=== PATIENT | male | born 1950 | race Caucasian/White ===

== ENCOUNTER 2023-06-23 12:50 | Emergency (ER) | payer MEDICARE, OTHER ==
[~2023-06-23] VITALS: Ht 172 cm; Wt 81.0 kg
--- NOTE | 2023-06-23 12:58 | ED General ---
General Stated Complaint: SYNCOPAL EPISODE; SWEATING; LWR ABD PAIN History of Present Illness Date Seen by Provider: Jun 23, 2023 Time Seen by Provider: 12:57 Initial Comments 73 yr M with PMH of CAD with stents/ HTN/ non-smoker, is here with c/o near syncope when he got up to use the bathroom. Pt was at a diner, as he was passing through [place] to go home to [place] where he lives.Pt has been travelling the past week from [place] [facility] [place] [facility], and has not been drinking much water. Denies fever, cough, chest pain, palpitations, abdominal pain, vomiting, dysuria, diarrhea, SOB. Allergies and Home Medications Allergies Coded Allergies: No Known Allergies (Verified Allergy, Unknown, 06/23/23) Patient Home Medication List Home Medication List Reviewed: Yes Review of Systems Review of Systems Constitutional: see HPI, dizziness EENTM: no symptoms reported Respiratory: no symptoms reported Cardiovascular: no symptoms reported Gastrointestinal: no symptoms reported Genitourinary: no symptoms reported Musculoskeletal: no symptoms reported Skin: no symptoms reported Psychiatric/Neurological: No Symptoms Reported Hematologic/Lymphatic: No Symptoms Reported Immunological/Allergic: no symptoms reported Physical Exam Vital Signs Vital Signs - First Documented 06/23/23 13:10 Temp 36.6 Pulse 62 Resp 16 B/P (MAP) 80/54 (63) Pulse Ox 98 O2 Delivery Room Air Capillary Refill : Height, Weight, BMI Height: '" Weight: lbs. oz. 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 Skin: Normal Color Progress/Results/Core Measures Suspected Sepsis SIRS Temperature: Pulse: Respiratory Rate: Laboratory Tests 06/23/23 12:57: White Blood Count 11.7H Blood Pressure / Mean: Laboratory Tests 06/23/23 12:57: Creatinine 0.96, Platelet Count 329, Total Bilirubin 0.6 Results/Orders Lab Results Laboratory Tests Test 06/23/23 12:57 Range/Units White Blood Count 11.7 H 4.3-11.0 10^3/uL Red Blood Count 5.06 4.30-5.52 10^6/uL Hemoglobin 15.2 13.3-17.7 g/dL Hematocrit 45 40-54 % Mean Corpuscular Volume 89 80-99 fL Mean Corpuscular Hemoglobin 30 25-34 pg Mean Corpuscular Hemoglobin Concent 34 32-36 g/dL Red Cell Distribution Width 12.9 10.0-14.5 % Platelet Count 329 130-400 10^3/uL Mean Platelet Volume 10.1 9.0-12.2 fL Immature Granulocyte % (Auto) 0 % Neutrophils (%) (Auto) 52 42-75 % Lymphocytes (%) (Auto) 40 12-44 % Monocytes (%) (Auto) 5 0-12 % Eosinophils (%) (Auto) 2 0-10 % Basophils (%) (Auto) 1 0-10 % Neutrophils # (Auto) 6.1 1.8-7.8 X 10^3 Lymphocytes # (Auto) 4.7 H 1.0-4.0 X 10^3 Monocytes # (Auto) 0.6 0.0-1.0 X 10^3 Eosinophils # (Auto) 0.2 0.0-0.3 10^3/uL Basophils # (Auto) 0.1 0.0-0.1 10^3/uL Immature Granulocyte # (Auto) 0.0 0.0-0.1 10^3/uL Sodium Level 139 135-145 MMOL/L Potassium Level 3.8 3.6-5.0 MMOL/L Chloride Level 99 98-107 MMOL/L Carbon Dioxide Level 25 21-32 MMOL/L Anion Gap 15 H 5-14 MMOL/L Blood Urea Nitrogen 26 H 7-18 MG/DL Creatinine 0.96 0.60-1.30 MG/DL Estimat Glomerular Filtration Rate 83 BUN/Creatinine Ratio 27 Glucose Level 142 H 70-105 MG/DL Calcium Level 9.9 8.5-10.1 MG/DL Corrected Calcium 8.5-10.1 MG/DL Magnesium Level 2.3 1.6-2.4 MG/DL Total Bilirubin 0.6 0.1-1.0 MG/DL Aspartate Amino Transf (AST/SGOT) 20 5-34 U/L Alanine Aminotransferase (ALT/SGPT) 14 0-55 U/L Alkaline Phosphatase 64 40-136 U/L Troponin I < 0.30 <0.30 NG/ML Pro-B-Type Natriuretic Peptide 64.7 <125.0 PG/ML Total Protein 6.8 6.4-8.2 GM/DL Albumin 4.7 H 3.2-4.5 GM/DL My Orders Orders - CARL MAZARIEGOS MD Ua Culture If Indicated (06/23/23 12:58) Cbc With Automated Diff (06/23/23 13:14) Comprehensive Metabolic Panel (06/23/23 13:14) Magnesium (06/23/23 13:14) Probnp Fs (06/23/23 13:14) Troponin I Fs (06/23/23 13:14) Continuous Ekg Monitoring (06/23/23 13:16) Ekg Tracing (06/23/23 13:16) Ct Head Wo (06/23/23 13:16) Chest 1 View Ap/Pa Only (06/23/23 13:16) Ed Iv/Invasive Line Start (06/23/23 13:17) Ns Iv 1000 Ml (Ns Iv 1000 Ml) (06/23/23 13:30) Vital Signs/I&O 06/23/23 13:10 Temp 36.6 Pulse 62 Resp 16 B/P (MAP) 80/54 (63) Pulse Ox 98 O2 Delivery Room Air Capillary Refill : Progress Note : Progress Note 1. NEAR SYNCOPE DUE TO ORTHOSTATIC HYPOTENSION LIKELY CAUSED BY DEHYDRATION: - CT HEAD: No acute hemorrhage or other definite acute abnormality. There is significant atherosclerotic disease involving distal internal carotid and vertebral arteries with high density in the basilar artery. Consideration could be given to CTA study for further assessment and confirmation of patency of these vessels. - CXR: No acute findings - CBC/CMP: unremarkble - UA: Did not give sample - Troponin: undetected - BNP: neg - Orthostatics done by nurse: positive - NS IVF bolus STAT . Pt feels much better after the iv fluids. - Advised to follow up with PCP and flumer within 1 week. -The patient was seen in the ED, and treated appropriately to presentation at a specific point in time. Patient is informed that there is a possibility that disease and illness can evolve and change in acuity rapidly or slowly after patient is discharged from the ER. Precautionary advice given to the patient for immediate return to ER if symptoms worsen or do not resolve, and to seek emergency care sooner rather than later. Pt also advised on the importance of PCP follow up and compliance with management and follow up plan with PCP and/or specialist, as this is part of the management plan. Pt verbally expressed understanding. ECG Initial ECG Impression Date: Jun 23, 2023 Initial ECG Impression Time: 13:02 Initial ECG Rate: 56 Initial ECG Rhythm: S.Kam Initial ECG Intervals: Normal Initial ECG Impression: Nonspecific Changes Initial ECG Comparisson: No Previous ECG Available Diagnostic Imaging Diagonstic Imaging: Xray, CT Plain Films/CT/US/NM/MRI: chest, head Comments [facility] [place] NAME: KENDRA NI [facility] REC#: [id number] PT STATUS: REG ER : 1950 PHYSICIAN: CARL MAZARIEGOS MD ADMIT DATE: 06/23/23/ER FS Signed Date of Exam:06/23/23 CHEST 1 VIEW AP/PA ONLY EXAMINATION: Chest 1 view HISTORY: Dizziness. Near syncopal episode. COMPARISON: None available. FINDINGS: The lung volumes are normal. No focal consolidation is seen. No large pleural effusion or pneumothorax is seen. The cardiomediastinal silhouette is normal in size and contour. There is calcified aortic atherosclerotic plaque. No acute osseous abnormality is seen. IMPRESSION: 1. No acute pleuroparenchymal process. Dictated by: Dictated on workstation # [id number] Dict: 06/23/23 1350 Trans: 06/23/23 1352 CVB [id number] Interpreted by: JAKE IRELAND DO Electronically signed by: JAKE IRELAND DO 06/23/23 135 [facility] [place] NAME: KENDRA NI [facility] REC#: [id number] PT STATUS: REG ER : 1950 PHYSICIAN: CARL MAZARIEGOS MD ADMIT DATE: 06/23/23/ER FS Draft Date of Exam:06/23/23 CT HEAD WO PROCEDURE: CT head without contrast. TECHNIQUE: Multiple contiguous axial images were obtained through the brain without the use of intravenous contrast. Auto Exposure Controls were utilized during the CT exam to meet ALARA standards for radiation dose reduction. INDICATION: Dizziness. FINDINGS: Ventricles and sulci are within normal limits for size. There is no evidence of hemorrhage. There is no abnormal mass effect or shift of midline structures. There is extensive atherosclerotic calcification within distal internal carotid and vertebral arteries with significant increased density at the level of basilar artery. There is no geographic low density to indicate territorial infarct. Calvarium is intact. Paranasal sinuses are clear. There is debris which may represent cerumen within the external auditory canals. IMPRESSION: No acute hemorrhage or other definite acute abnormality. There is significant atherosclerotic disease involving distal internal carotid and vertebral arteries with high density in the basilar artery. Consideration could be given to CTA study for further assessment and confirmation of patency of these vessels. Dictated on workstation # [id number] Dict: 06/23/23 1335 Trans: 06/23/23 1340 [id number] [id number] Interpreted by: EASTON AGARWAL MD Electronically signed by: [facility] [place] NAME: KENDRA NI [facility] REC#: [id number] PT STATUS: REG ER : 1950 PHYSICIAN: CARL MAZARIEGOS MD ADMIT DATE: 06/23/23/ER FS Signed Date of Exam:06/23/23 CHEST 1 VIEW AP/PA ONLY EXAMINATION: Chest 1 view HISTORY: Dizziness. Near syncopal episode. COMPARISON: None available. FINDINGS: The lung volumes are normal. No focal consolidation is seen. No large pleural effusion or pneumothorax is seen. The cardiomediastinal silhouette is normal in size and contour. There is calcified aortic atherosclerotic plaque. No acute osseous abnormality is seen. IMPRESSION: 1. No acute pleuroparenchymal process. Dictated by: Dictated on workstation # [id number] Dict: 06/23/23 1350 Trans: 06/23/23 1352 CVB [id number] Interpreted by: JAKE IRELAND DO Electronically signed by: JAKE IRELAND DO 06/23/23 1352 Departure Impression Primary Impression: Near syncope Additional Impressions: Orthostatic hypotension Dehydration Disposition: HOME, SELF-CARE Condition: Stable Departure-Patient Inst. Referrals: NO,LOCAL PHYSICIAN (PCP/Family) Primary Care Physician Patient Instructions: Why Water Is Important to Health, Dehydration, Adult ED, Orthostatic hypotension Add. Discharge Instructions: - Orthostatics done by nurse: positive - Advised to drink at least 8 glasses of water day - NS IVF bolus STAT . Pt feels much better after the iv fluids. - Advised to follow up with PCP and flumer within 1 week. CARL MAZARIEGOS MD Jun 23, 2023 12:58
[2023-06-23 13:30] LABS: HEMATOCRIT 45 % (40-54); HEMOGLOBIN 15.2 g/dL (13.3-17.7); MEAN CORPUSCULAR HEMOGLOBIN 30 pg (25-34); MEAN CORPUSCULAR HGB CONC 34 g/dL (32-36); MEAN CORPUSCULAR VOLUME 89 fL (80-99); PLATELET COUNT 329 10^3/uL (130-400); WHITE BLOOD COUNT 11.7 10^3/uL (4.3-11.0)
[2023-06-23] MEDS ORDERED: NS IV 1000 ML 1,000 ML IV SCH (13:30)
[2023-06-23 13:31] LABS: BASOPHILS # (AUTO) 0.1 10^3/uL (0.0-0.1); BASOPHILS % (AUTO) 1 % (0-10); EOSINOPHILS # (AUTO) 0.2 10^3/uL (0.0-0.3); EOSINOPHILS % (AUTO) 2 % (0-10); LYMPHOCYTES # (AUTO) 4.7 X 10^3 (1.0-4.0); LYMPHOCYTES % (AUTO) 40 % (12-44); MEAN PLATELET VOLUME 10.1 fL (9.0-12.2); MONOCYTES # (AUTO) 0.6 X 10^3 (0.0-1.0); MONOCYTES % (AUTO) 5 % (0-12); NEUTROPHILS # (AUTO) 6.1 X 10^3 (1.8-7.8); NEUTROPHILS % (AUTO) 52 % (42-75)
--- NOTE | 2023-06-23 13:41 | Diagnostic Imaging Report ---
PROCEDURE: CT head without contrast. TECHNIQUE: Multiple contiguous axial images were obtained through the brain without the use of intravenous contrast. Auto Exposure Controls were utilized during the CT exam to meet ALARA standards for radiation dose reduction. INDICATION: Dizziness. FINDINGS: Ventricles and sulci are within normal limits for size. There is no evidence of hemorrhage. There is no abnormal mass effect or shift of midline structures. There is extensive atherosclerotic calcification within distal internal carotid and vertebral arteries with significant increased density at the level of basilar artery. There is no geographic low density to indicate territorial infarct. Calvarium is intact. Paranasal sinuses are clear. There is debris which may represent cerumen within the external auditory canals. IMPRESSION: No acute hemorrhage or other definite acute abnormality. There is significant atherosclerotic disease involving distal internal carotid and vertebral arteries with high density in the basilar artery. Consideration could be given to CTA study for further assessment and confirmation of patency of these vessels. Dictated by: Dictated on workstation # [id number]
--- NOTE | 2023-06-23 13:51 | Diagnostic Imaging Report ---
EXAMINATION: Chest 1 view HISTORY: Dizziness. Near syncopal episode. COMPARISON: None available. FINDINGS: The lung volumes are normal. No focal consolidation is seen. No large pleural effusion or pneumothorax is seen. The cardiomediastinal silhouette is normal in size and contour. There is calcified aortic atherosclerotic plaque. No acute osseous abnormality is seen. IMPRESSION: 1. No acute pleuroparenchymal process. Dictated by: Dictated on workstation # [id number]
[2023-06-23 13:53] LABS: BUN/CREATININE RATIO 27; CALCIUM 9.9 MG/DL (8.5-10.1); CARBON DIOXIDE 25 MMOL/L (21-32); CHLORIDE 99 MMOL/L (98-107); CREATININE SERUM 0.96 MG/DL (0.60-1.30); GFR ESTIMATED 83; GLUCOSE 142 MG/DL (70-105); MAGNESIUM 2.3 MG/DL (1.6-2.4); POTASSIUM 3.8 MMOL/L (3.6-5.0); SODIUM 139 MMOL/L (135-145)
[2023-06-23 13:54] LABS: ALANINE AMINOTRANSFERASE 14 U/L (0-55); ALBUMIN 4.7 GM/DL (3.2-4.5); ALKALINE PHOSPHATASE 64 U/L (40-136); BILIRUBIN,TOTAL 0.6 MG/DL (0.1-1.0); TOTAL PROTEIN 6.8 GM/DL (6.4-8.2)
[2023-06-23 14:20] VITALS: BP 105/59
== END 2023-06-23 14:25 | disposition home or self-care (01) ==
LOC: ER FS 12:53
DX: I95.1 Orthostatic hypotension (principal); E86.0 Dehydration
CPT/HCPCS: 36415; 70450; 71045; 80053; 83735; 83880; 84484; 85025; 93005